=== PATIENT | female | born 1980 | race Two or more races ===

== ENCOUNTER 2016-09-07 02:58 | Emergency (ER) | payer MEDICAID ==
[2016-09-07] MEDS ORDERED: ONDANSETRON 4 MG/2ML 2 ML VIAL ONE (03:22)
[2016-09-07] MEDS ORDERED: MORPHINE SULFATE 4 MG/ML SYRINGE ONE (03:23)
[2016-09-07] MEDS ORDERED: SODIUM CHLORIDE 0.9% 1,000 ML ONE (03:23)
[2016-09-07 03:32] LABS: BASO % 0.5 % (0.2-1.0); EOS # 0.4 (0.0-0.5); EOS % 6.9 % (0.9-2.9); HEMATOCRIT 41.2 % (37.0-47.0); HEMOGLOBIN 13.1 gm/l (12.0-16.0); IMM NEUT% 0.3 % (0-1); LYMPH # 2.3 (1.0-4.8); LYMPH % 36.6 % (15-45); MEAN CELL VOLUME 86.4 fl (81.0-99.0); MEAN CORPUSCULAR HEMOGLOBIN 27.5 pg (27.0-31.0); MEAN CORPUSCULAR HGB CONC 31.8 g/dl (33.0-37.0); MEAN PLATELET VOLUME 12.4 fl (7.4-10.4); MONO # 0.5 (0.0-0.8); NEUT % 47.7 % (43-75); PLATELET COUNT 251 K/mm3 (130-400); RED CELL DISTRIBUTION WIDTH 14.5 % (11.5-14.5)
[2016-09-07 03:45] LABS: INR 0.91; PROTHROMBIN TIME 9.6 SECONDS (9.3-11.4)
[2016-09-07 03:48] LABS: ALB/GLOB RATIO 1.2 (>1.0); ALBUMIN 4.3 gm/dL (3.5-5.7); CALCIUM 9.7 mg/dL (8.6-10.3)
[2016-09-07 04:29] LABS: PH,URINE 6.5 (5.0-8.0); URINE APPEARANCE CLEAR; URINE BILIRUBIN NEGATIVE (NEGATIVE); URINE BLOOD NEGATIVE (NEGATIVE); URINE COLOR LIGHT YELLOW; URINE GLUCOSE (UA) NEGATIVE (NEGATIVE); URINE LEUKOCYTE ESTERASE NEGATIVE (NEGATIVE); URINE NITRITE NEGATIVE (NEGATIVE); URINE PROTEIN NEGATIVE (NEGATIVE); URINE UROBILINOGEN NORMAL (0-1 mg/dl)
--- NOTE | 2016-09-07 10:20 | US ---
ABDOMINAL-LIMITED History: Right upper quadrant pain. Comparison 09/04/2016. Findings: Gallbladder: The gallbladder demonstrates evidence of echogenic shadowing foci within the gallbladder lumen consistent with gallstones. No gallbladder wall thickening or pericholecystic fluid is seen. A negative sonographic Juarez sign was elicited during the course of the exam. Biliary tree: The common hepatic duct measures 4.9 millimeters adjacent to the hepatic artery. Liver: the visualized liver is homogeneous. No masses or evidence of intra-hepatic biliary dilatation are seen. Impression: 1. Cholelithiasis without gallbladder wall thickening or biliary dilatation. The findings were called to the emergency room at 0435 hours, 09/07/2016, by [facility].
== END 2016-09-07 05:06 | disposition home or self-care (01) ==
LOC: ED 02:58
DX: K80.20 Calculus of gallbladder without cholecystitis without obstruction (principal); R10.11 Right upper quadrant pain
CPT/HCPCS: 83605; 83690; 85025; 80053; 85610; 81003; 76705; 96375; 99283 ×2; 96374; 96361 ×2; J2270; J2405; J7030

== ENCOUNTER 2016-10-18 19:49 | Emergency (ER) | payer MEDICAID ==
[2016-10-18 22:57] LABS: SPECIFIC GRAVITY 1.025 (1.001-1.030); URINE BILIRUBIN NEGATIVE (NEGATIVE); URINE BLOOD NEGATIVE (NEGATIVE); URINE GLUCOSE (UA) NEGATIVE (NEGATIVE); URINE LEUKOCYTE ESTERASE NEGATIVE (NEGATIVE); URINE NITRITE NEGATIVE (NEGATIVE); URINE PROTEIN NEGATIVE (NEGATIVE); URINE UROBILINOGEN NORMAL (0-1 mg/dl)
[2016-10-18 22:59] LABS: HCG,QUALITATIVE URINE NEGATIVE
[2016-10-18 23:00] LABS: URINE APPEARANCE CLEAR; URINE COLOR YELLOW
== END 2016-10-19 00:11 | disposition home or self-care (01) ==
LOC: ED 19:49
DX: R10.9 Unspecified abdominal pain (principal); Z53.21 Procedure and treatment not carried out due to patient leaving prior to being seen by health care provider